=== PATIENT | female | born 1955 | race Caucasian/White ===

== ENCOUNTER 2020-11-17 17:29 | Emergency (ER) | payer OTHER ==
[~2020-11-17] VITALS: Ht 175.3 cm; Wt 104.3 kg
[~2020-11-17 17:29] MED LIST: ACYCLOVIR 200200 MG PO; CLONAZEPAM PO; CYMBALTA60 MG PO; DARVOCET-N 1001 EACH PO; FLONASE16 GM NS; LEVOTHYROXINE0.05 MG PO; PREMARIN0.625 MG PO; PROTONIX40 M2 PO; SEROQUEL 50 MG50 M1 PO; TREXIMET 85-501 EACH PO
[2020-11-17] MEDS ORDERED: NORCO5 PO ×2 (18:48→19:40)
[2020-11-17 19:27] VITALS: BP 101/56
== END 2020-11-17 19:50 | disposition home or self-care (01) ==
LOC: ER 17:29
DX: S52.572A Other intraarticular fracture of lower end of left radius, initial encounter for closed fracture (principal); S80.212A Abrasion, left knee, initial encounter; E03.9 Hypothyroidism, unspecified; F42.9 Obsessive-compulsive disorder, unspecified; G43.909 Migraine, unspecified, not intractable, without status migrainosus; K21.9 Gastro-esophageal reflux disease without esophagitis; M19.90 Unspecified osteoarthritis, unspecified site; Z90.710 Acquired absence of both cervix and uterus; Z90.89 Acquired absence of other organs; Z88.1 Allergy status to other antibiotic agents; W01.0XXA Fall on same level from slipping, tripping and stumbling without subsequent striking against object, initial encounter; Y93.89 Activity, other specified; Y92.89 Other specified places as the place of occurrence of the external cause; Y99.8 Other external cause status